=== PATIENT | female | born 1995 | race Caucasian/White ===

== ENCOUNTER 2018-04-04 03:39 | Outpatient (CLI) | payer MEDICAID ==
[~2018-04-04] VITALS: Ht 154.9 cm; Wt 45.8 kg
--- NOTE | 2018-04-04 03:50 | NUR ---
LANCE ZARATE presented to unit via ambulation from ED, accompanied by SO, with c/o HIGH RISK . LANCE ZARATE weighed, gowned, voided, and to bed. EFHM and TOCO applied, VS taken. LANCE ZARATE oriented to bed controls, call light, TV, heat, and A/C controls.
[2018-04-04 04:07] VITALS: BP 115/62
[2018-04-04 04:13] LABS: BILIRUBIN,URINE NEGATIVE (NEGATIVE); CLARITY,URINE VERY CLOUDY; COLOR,URINE YELLOW; GLUCOSE, URINE (UA) NEGATIVE (NEGATIVE); KETONES,URINE NEGATIVE (NEGATIVE); LEUKOCYTE ESTERASE ,URINE 2+ (NEGATIVE); NITRITE,URINE NEGATIVE (NEGATIVE); PH,URINE 8 (5-9); PROTEIN,URINE 1+ (NEGATIVE); UROBILINOGEN,URINE NORMAL (NORMAL)
--- NOTE | 2018-04-04 04:13 | NUR ---
Pt arrived on unit with c/o back pain, pt has a hx of a 9 week miscarriage in 2013, and 22 week demise 2016. Pt arrived and has no pain at this time. Pt is seeing a perinatologist in and is suppose to go to him if she experiences pain. Pt is unsure wher to go or how to get there so she came to our facility. VS monitored
[2018-04-04 04:21] LABS: BACTERIA,URINE FEW /HPF
[2018-04-04 04:22] LABS: AMORPHOUS SEDIMENT,UR LARGE AMOR PHOSPHATE /LPF
--- NOTE | 2018-04-04 05:52 | NUR ---
Pt resting with toco in place. No complaints at this time.
--- NOTE | 2018-04-04 07:00 | NUR ---
REPORT FROM GOLDIE JACKSON.
--- NOTE | 2018-04-04 07:25 | NUR ---
DR WANG HERE NEW ORDERS RECEIVED.
--- NOTE | 2018-04-04 08:10 | Diagnostic Imaging Report ---
Indication: Back pain 20 weeks , assess cervix. The cervix was nondilated and measured 3.1 cm in length. [place] viable IUP, had a heart rate 147 beats per minute. Placenta is anterior with no abruption or previa. The amniotic fluid volume appeared normal. Impression: Limited exam showed anterior placenta, no abruption or previa with nondilated 3.1 cm length cervix and cephalic positioning. Dictated by: Dictated on workstation # [id number]
--- NOTE | 2018-04-04 10:00 | NUR ---
NO CONTRACTIONS NOTED, PT DENIES CONTRACTIONS OR PAIN.
--- NOTE | 2018-04-04 10:05 | NUR ---
DR CHAPMAN CALLED NEW ORDERS RECEIVED.
--- NOTE | 2018-04-04 10:50 | NUR ---
DISCHARGE INSTRUCTIONS EXPLAINED, SIGNED, NO QUESTIONS NOTED, LABOR PRECAUTIONS EXPLAINED, PT VERBALIZES UNDERSTANDING OF FOLLOW UP CARE AND INSTRUCTIONS.
--- NOTE | 2018-04-04 10:55 | NUR ---
PT DISCHARGED TO HOME, TAKEN BY WC TO PRIVATE CAR WITH S/O AND STAFF AT SIDE, NO DISTRESS NOTED, WILL MONITOR.
== END 2018-04-04 10:55 | disposition home or self-care (01) ==
LOC: WSo 03:39 → LDRP 03:40 → WSo 10:55
PROVIDERS: ATTEND Family Medicine
DX: O60.02 Preterm labor without delivery, second trimester (principal); Z3A.20 20 weeks gestation of pregnancy
CPT/HCPCS: 76815; 81000; 87088; 99213

== ENCOUNTER → 2019-12-15 | Outpatient (CLI) | payer MEDICAID ==
[2019-12-15 14:26] LABS: BASOPHILS % (AUTO) 1 % (0-10); EOSINOPHILS % (AUTO) 1 % (0-10); HEMATOCRIT 38 % (35-52); HEMOGLOBIN 13.1 G/DL (11.5-16.0); LYMPHOCYTES % (AUTO) 31 % (12-44); MEAN CORPUSCULAR HEMOGLOBIN 32 PG (25-34); MEAN CORPUSCULAR HGB CONC 35 G/DL (32-36); MEAN CORPUSCULAR VOLUME 91 FL (80-99); MEAN PLATELET VOLUME 9.9 FL (7.4-10.4); MONOCYTES % (AUTO) 6 % (0-12); NEUTROPHILS % (AUTO) 62 % (42-75); PLATELET COUNT 242 10^3/uL (130-400); WHITE BLOOD COUNT 7.7 10^3/uL (4.3-11.0)
[2019-12-15 14:27] LABS: EOSINOPHILS # (AUTO) 0.1 10^3/uL (0.0-0.3); LYMPHOCYTES # (AUTO) 2.4 X 10^3 (1.0-4.0); MONOCYTES # (AUTO) 0.5 X 10^3 (0.0-1.0); NEUTROPHILS # (AUTO) 4.7 X 10^3 (1.8-7.8)
== END ==
LOC: LAB FS 13:52
PROVIDERS: ATTEND Family Medicine
DX: O09.90 Supervision of high risk pregnancy, unspecified, unspecified trimester (principal)
CPT/HCPCS: 36415; 80055; 86703; 86762; 87088

== ENCOUNTER → 2020-01-04 | Outpatient (CLI) | payer MEDICAID | LOC: LABNPT 11:46 | PROVIDERS: ATTEND Family Medicine | DX: O09.90 Supervision of high risk pregnancy, unspecified, unspecified trimester (principal) | CPT/HCPCS: 87491; 87591 ==

== ENCOUNTER 2020-02-12 21:48 | Emergency (ER) | payer MEDICAID ==
[~2020-02-12] VITALS: Ht 154.9 cm; Wt 46.7 kg
--- NOTE | 2020-02-12 22:09 | ED General ---
General Chief Complaint: Abdominal/GI Problems Stated Complaint: ABD PAIN,VOMITING Nursing Triage Note: Patient states that she started having medial lower abdominal pain earlier today. Patient states that it has progressively gotten worse during the day. Patient describes the pain as sharp and intermittent. Patient has vomited due to pain. Patient is 18 weeks . Nursing Sepsis Screen: No Definite Risk Source of Information: Patient History of Present Illness Date Seen by Provider: Feb 12, 2020 Time Seen by Provider: 21:51 Initial Comments 24 yo female presenting with complaints of abdominal pain and cramping from umbilicus down in the middle of her abdomen. She has had discomfort in her abdomen and felt that her baby was sitting on her bladder all day. She is G 4 P2SAB1 and about 18weeks 4 days with EDC 13 July 2020. She has had prior placental abruption and prior incompetent cervix. She follows with Dr. Chapman for local OB care but sees [facility] out of [facility] for specialty follow up since she has had 2 early deliveries. She had pain that caused her to have an episode of vomiting and cramping just prior to arrival in ED. She denies having nausea today but states she has Zofran she takes for nausea usually. She has not had any dysuria or issues with urination and no vaginal bleeding or discharge. She denies diarrhea or change in her bowels. She has had prior abdominal surgery with cholecystectomy and appendectomy. Allergies and Home Medications Allergies Coded Allergies: adhesive (Verified Allergy, Unknown, 04/04/18) latex (Verified Allergy, Unknown, 04/04/18) morphine (Verified Allergy, Unknown, 04/04/18) Uncoded Allergies: chocolate (Allergy, Unknown, 04/04/18) Home Medications No Active Prescriptions or Reported Meds Patient Home Medication List Home Medication List Reviewed: Yes Review of Systems Review of Systems Constitutional: No chills, No dizziness, No fever EENTM: no symptoms reported Respiratory: no symptoms reported Cardiovascular: no symptoms reported Gastrointestinal: see HPI Genitourinary: no symptoms reported : Yes Expected Date of Delivery: Jul 13, 2020 Musculoskeletal: no symptoms reported Skin: no symptoms reported Psychiatric/Neurological: No Symptoms Reported Hematologic/Lymphatic: No Symptoms Reported Past [id number]-[id number] Hx Past Med/Social Hx: Reviewed Nursing Past Med/Soc Hx Patient Social History Alcohol Use: Denies Use Recreational Drug Use: No Smoking Status: Current Everyday Smoker Type Used: Cigarettes Recent Foreign Travel: No Contact w/Someone Who Travel: No Recent Infectious Disease Expo: No Physical Abuse: No Sexual Abuse: No Mistreated: No Fear: No Past Medical History Surgeries: Yes (Eye Surgery) Appendectomy, Gallbladder Respiratory: No Cardiac: No Neurological: No Genitourinary: No Gastrointestinal: No Musculoskeletal: No Endocrine: No HEENT: No Cancer: No Psychosocial: No Integumentary: No Physical Exam Vital Signs Vital Signs - First Documented 02/12/20 21:51 Temp 36.5 Pulse 113 Resp 18 B/P (MAP) 122/52 (75) Pulse Ox 100 O2 Delivery Room Air Capillary Refill : Less Than 3 Seconds Height, Weight, BMI Height: 5'1.00" Weight: 101lbs. 0.0oz. 45.260513so; 19.00 BMI Method: General Appearance: WD/WN, Anxious, Moderate Distress HEENT: PERRL/EOMI, Pharynx Normal Neck: Full Range of Motion, Supple Respiratory: Chest Non Tender, Lungs Clear, Normal Breath Sounds, No Accessory Muscle Use, No Respiratory Distress Cardiovascular: Normal Peripheral Pulses, Tachycardia Gastrointestinal: Normal Bowel Sounds, No Pulsatile Mass, Soft, Guarding; No Rebound; Tenderness (tender to palpation of the lower abdomen), Other (gravid uterus) Neurologic/Psychiatric: Alert, Oriented x3, No Motor/Sensory Deficits Skin: Normal Color, Warm/Dry Progress/Results/Core Measures Suspected Sepsis Recent Fever Within 48 Hours: No Infection Criteria Present: None New/Unexplained Altered Menta: No Sepsis Screen: No Definite Risk SIRS Temperature: Pulse: 113 Respiratory Rate: 18 Laboratory Tests 02/12/20 22:10: White Blood Count 9.2 Blood Pressure 122 /52 Mean: 75 Laboratory Tests 02/12/20 22:10: Creatinine 0.52L, Platelet Count 230, Total Bilirubin 0.2 Results/Orders Lab Results Laboratory Tests Test 02/12/20 22:10 02/12/20 22:46 Range/Units White Blood Count 9.2 4.3-11.0 10^3/uL Red Blood Count 3.92 L 4.35-5.85 10^6/uL Hemoglobin 12.8 11.5-16.0 G/DL Hematocrit 37 35-52 % Mean Corpuscular Volume 94 80-99 FL Mean Corpuscular Hemoglobin 33 25-34 PG Mean Corpuscular Hemoglobin Concent 35 32-36 G/DL Red Cell Distribution Width 12.6 10.0-14.5 % Platelet Count 230 130-400 10^3/uL Mean Platelet Volume 10.1 7.4-10.4 FL Immature Granulocyte % (Auto) 1 % Neutrophils (%) (Auto) 64 42-75 % Lymphocytes (%) (Auto) 30 12-44 % Monocytes (%) (Auto) 6 0-12 % Eosinophils (%) (Auto) 0 0-10 % Basophils (%) (Auto) 0 0-10 % Neutrophils # (Auto) 5.8 1.8-7.8 X 10^3 Lymphocytes # (Auto) 2.7 1.0-4.0 X 10^3 Monocytes # (Auto) 0.5 0.0-1.0 X 10^3 Eosinophils # (Auto) 0.0 0.0-0.3 10^3/uL Basophils # (Auto) 0.0 0.0-0.1 10^3/uL Immature Granulocyte # (Auto) 0.1 0.0-0.1 10^3/uL Sodium Level 135 135-145 MMOL/L Potassium Level 3.3 L 3.6-5.0 MMOL/L Chloride Level 104 98-107 MMOL/L Carbon Dioxide Level 20 L 21-32 MMOL/L Anion Gap 11 5-14 MMOL/L Blood Urea Nitrogen 8 7-18 MG/DL Creatinine 0.52 L 0.60-1.30 MG/DL Estimat Glomerular Filtration Rate > 60 BUN/Creatinine Ratio 15 Glucose Level 74 70-105 MG/DL Calcium Level 8.4 L 8.5-10.1 MG/DL Corrected Calcium 8.5 8.5-10.1 MG/DL Total Bilirubin 0.2 0.1-1.0 MG/DL Aspartate Amino Transf (AST/SGOT) 12 5-34 U/L Alanine Aminotransferase (ALT/SGPT) 10 0-55 U/L Alkaline Phosphatase 47 40-136 U/L Total Protein 6.2 L 6.4-8.2 GM/DL Albumin 3.9 3.2-4.5 GM/DL Lipase 16 8-78 U/L Urine Color DARK YELLOW Urine Clarity SL CLOUDY Urine pH 7.5 5-9 Urine Specific [place] 1.025 H 1.016-1.022 Urine Protein NEGATIVE NEGATIVE Urine Glucose (UA) NEGATIVE NEGATIVE Urine Ketones 1+ H NEGATIVE Urine Nitrite NEGATIVE NEGATIVE Urine Bilirubin NEGATIVE NEGATIVE Urine Urobilinogen 0.2 < = 1.0 MG/DL Urine Leukocyte Esterase TRACE H NEGATIVE Urine RBC (Auto) NEGATIVE NEGATIVE Urine RBC NONE /HPF Urine WBC 2-5 /HPF Urine Squamous Epithelial Cells 2-5 /HPF Urine Crystals PRESENT H /LPF Urine Amorphous Sediment MOD JEFFERY PHOSPHATE H /LPF Urine Bacteria FEW H /HPF Urine Casts NONE /LPF Urine Mucus MODERATE H /LPF Urine Culture Indicated NO My Orders Orders - MONIQUE FARLEY MD Heart Tones (02/12/20 22:07) Comprehensive Metabolic Panel (02/12/20 22:07) Lipase (02/12/20 22:07) Ua Culture If Indicated (02/12/20 22:07) Ed Iv/Invasive Line Start (02/12/20 22:07) Cbc With Automated Diff (02/12/20 22:07) Ns Iv 1000 Ml (Sodium Chloride 0.9%) (02/12/20 22:15) Acetaminophen Tablet (Tylenol Tablet) (02/12/20 23:00) Vital Signs/I&O 02/12/20 21:51 Temp 36.5 Pulse 113 Resp 18 B/P (MAP) 122/52 (75) Pulse Ox 100 O2 Delivery Room Air Capillary Refill : Less Than 3 Seconds Blood Pressure Mean: 75 Progress Note #1: Progress Note check labs and lipase with UA and heart tones. Will try giving IVF for hydration and see if that helps her pain and symptoms. FHTs in 140s Progress Note #2: Progress Note Labs are not showing acute abnormality on CBC. Chemistry with mild drop in potassium but no acute significant abnormality. UA shows elevated specific gravity and ketones with signs of dehydration but no signs of definite infection and no indication for culture. Pt feeling better after IVF and she does report at her visit last week in OP they told her she was having some mild uterine contractions and told her to drink more fluids. Will have her push fluids and electrolyte drinks. Counseled on follow up and return precautions. Departure Impression Primary Impression: Uterine irritability Additional Impressions: Abdominal pain during in second trimester Dehydration during Disposition: 01 HOME, SELF-CARE Condition: Improved Departure-Patient Inst. Decision time for Depature: 23:09 Referrals: ADRIEL CHAPMAN MD (PCP/Family) Primary Care Physician Patient Instructions: Stomach Pain in Early , Dehydration, Adult (DC) Add. Discharge Instructions: Stay well hydrated and try alternating electrolyte drinks with water. Follow up with your perinatologist and obstetritian for continued concerns All discharge instructions reviewed with patient and/or family. Voiced understanding. Scripts No Active Prescriptions or Reported Meds Images Torso/Trunk 1 - Moderate, Tenderness (tender to palpation from umbilicus down on abdomen. guarding but no rebound) MONIQUE FARLEY MD Feb 12, 2020 22:09
[2020-02-12] MEDS ORDERED: NS IV 1000 ML 1,000 ML IV SCH (22:15)
[2020-02-12 22:19] LABS: HEMOGLOBIN 12.8 G/DL (11.5-16.0); MEAN CORPUSCULAR HEMOGLOBIN 33 PG (25-34); WHITE BLOOD COUNT 9.2 10^3/uL (4.3-11.0)
[2020-02-12 22:20] LABS: BASOPHILS % (AUTO) 0 % (0-10); EOSINOPHILS % (AUTO) 0 % (0-10); HEMATOCRIT 37 % (35-52); LYMPHOCYTES # (AUTO) 2.7 X 10^3 (1.0-4.0); LYMPHOCYTES % (AUTO) 30 % (12-44); MEAN CORPUSCULAR HGB CONC 35 G/DL (32-36); MEAN CORPUSCULAR VOLUME 94 FL (80-99); MEAN PLATELET VOLUME 10.1 FL (7.4-10.4); MONOCYTES # (AUTO) 0.5 X 10^3 (0.0-1.0); MONOCYTES % (AUTO) 6 % (0-12); NEUTROPHILS # (AUTO) 5.8 X 10^3 (1.8-7.8); NEUTROPHILS % (AUTO) 64 % (42-75); PLATELET COUNT 230 10^3/uL (130-400)
[2020-02-12 22:38] LABS: CARBON DIOXIDE 20 MMOL/L (21-32); CHLORIDE 104 MMOL/L (98-107); POTASSIUM 3.3 MMOL/L (3.6-5.0); SODIUM 135 MMOL/L (135-145)
[2020-02-12 22:39] LABS: ALANINE AMINOTRANSFERASE 10 U/L (0-55); ALBUMIN 3.9 GM/DL (3.2-4.5); ALKALINE PHOSPHATASE 47 U/L (40-136); BILIRUBIN,TOTAL 0.2 MG/DL (0.1-1.0); BUN/CREATININE RATIO 15; CALCIUM 8.4 MG/DL (8.5-10.1); CREATININE SERUM 0.52 MG/DL (0.60-1.30); GFR ESTIMATED > 60; GLUCOSE 74 MG/DL (70-105); LIPASE 16 U/L (8-78); TOTAL PROTEIN 6.2 GM/DL (6.4-8.2)
[2020-02-12 22:58] LABS: BILIRUBIN,URINE NEGATIVE (NEGATIVE); CLARITY,URINE SL CLOUDY; COLOR,URINE DARK YELLOW; GLUCOSE, URINE (UA) NEGATIVE (NEGATIVE); KETONES,URINE 1+ (NEGATIVE); NITRITE,URINE NEGATIVE (NEGATIVE); PH,URINE 7.5 (5-9); PROTEIN,URINE NEGATIVE (NEGATIVE)
[2020-02-12 22:59] LABS: AMORPHOUS SEDIMENT,UR MOD AMOR PHOSPHATE /LPF; BACTERIA,URINE FEW /HPF; LEUKOCYTE ESTERASE ,URINE TRACE (NEGATIVE)
[2020-02-12] MEDS ORDERED: ACETAMINOPHEN 500 MG TAB (TYLENOL) PO STA (23:00)
[2020-02-12 23:15] VITALS: BP 101/61
== END 2020-02-12 23:15 | disposition home or self-care (01) ==
LOC: EDUNIT# 21:48 → ER FS 21:50
DX: O26.892 Other specified pregnancy related conditions, second trimester (principal); R10.9 Unspecified abdominal pain; E86.0 Dehydration; N36.8 Other specified disorders of urethra; F41.9 Anxiety disorder, unspecified; F17.210 Nicotine dependence, cigarettes, uncomplicated; Z88.5 Allergy status to narcotic agent; Z91.040 Latex allergy status; Z3A.18 18 weeks gestation of pregnancy
CPT/HCPCS: 36415; 80053; 81000; 83690; 85025

== ENCOUNTER → 2020-02-12 | Outpatient (CLI) | payer MEDICAID | LOC: LAB FS 16:16 | PROVIDERS: ATTEND Family Medicine | DX: O09.212 Supervision of pregnancy with history of pre-term labor, second trimester (principal) | CPT/HCPCS: 36415; 82105; 84702; 86336 ==

== ENCOUNTER 2020-06-06 17:23 | Emergency (ER) | payer MEDICAID ==
[2020-06-06] MEDS ORDERED: NS IV 1000 ML 1,000 ML IV STA ×2 (17:47→19:08)
[2020-06-06] MEDS ORDERED: ONDANSETRON 4 MG/2 ML (SDV) Z0FRAN IVP STA (17:57)
[2020-06-06 18:19] LABS: WHITE BLOOD COUNT 18.1 10^3/uL (4.3-11.0)
[2020-06-06 18:20] LABS: BASOPHILS # (AUTO) 0.1 10^3/uL (0.0-0.1); BASOPHILS % (AUTO) 0 % (0-10); EOSINOPHILS % (AUTO) 0 % (0-10); HEMATOCRIT 33 % (35-52); HEMOGLOBIN 11.2 G/DL (11.5-16.0); LYMPHOCYTES # (AUTO) 1.4 X 10^3 (1.0-4.0); LYMPHOCYTES % (AUTO) 8 % (12-44); MEAN CORPUSCULAR HEMOGLOBIN 32 PG (25-34); MEAN CORPUSCULAR HGB CONC 34 G/DL (32-36); MEAN CORPUSCULAR VOLUME 94 FL (80-99); MEAN PLATELET VOLUME 10.7 FL (7.4-10.4); MONOCYTES # (AUTO) 0.9 X 10^3 (0.0-1.0); MONOCYTES % (AUTO) 5 % (0-12); NEUTROPHILS # (AUTO) 15.5 X 10^3 (1.8-7.8); NEUTROPHILS % (AUTO) 86 % (42-75); PLATELET COUNT 316 10^3/uL (130-400)
--- NOTE | 2020-06-06 18:29 | ED General ---
General Chief Complaint: Abdominal/GI Problems Stated Complaint: VOMITING Source of Information: Patient History of Present Illness Date Seen by Provider: Jun 06, 2020 Time Seen by Provider: 17:26 Initial Comments 25-year-old female that is approximately 34 weeks estimated gestational age presents with diffuse abdominal cramping and nausea and vomiting all day. She has issues with her liver and is taking medicine for that. She has Zofran but only has pills not the dissolving tablets. She had been doing well but then today has been vomiting all day. She denies feeling dizzy or lightheaded. She has no vaginal bleeding or discharge. She states the last time she peed was around 8 AM. She had checked with her OB doctor out of [place] and they advised her to come get fluids and be evaluated. If there were further concerns then check with the OB doctor. She denies any fever or chills. She had no burning or pain when she urinated this morning. Allergies and Home Medications Allergies Coded Allergies: adhesive (Verified Allergy, Unknown, 04/04/18) latex (Verified Allergy, Unknown, 04/04/18) morphine (Verified Allergy, Unknown, 04/04/18) Uncoded Allergies: chocolate (Allergy, Unknown, 04/04/18) Home Medications Ondansetron 4 Mg Tab.rapdis, 4 MG PO Q6H PRN for NAUSEA/VOMITING Prescribed by: MONIQUE FARLEY on 06/06/201946 Patient Home Medication List Home Medication List Reviewed: Yes Review of Systems Review of Systems Constitutional: No chills, No diaphoresis, No dizziness, No fever EENTM: no symptoms reported Respiratory: no symptoms reported Cardiovascular: no symptoms reported Gastrointestinal: see HPI Genitourinary: see HPI, decreased output Musculoskeletal: no symptoms reported Skin: no symptoms reported Psychiatric/Neurological: No Symptoms Reported Past Wrzirmj-Bjcbqn-Syhsfr Hx Past Med/Social Hx: Reviewed Nursing Past Med/Soc Hx Patient Social History Alcohol Use: Denies Use Smoking Status: Current Everyday Smoker Type Used: Cigarettes 2nd Hand Smoke Exposure: No Past Medical History Surgeries: Yes (Eye Surgery) Appendectomy, Gallbladder, Orthopedic Respiratory: No Cardiac: No Neurological: No Genitourinary: No Gastrointestinal: Yes (intrahepatic cholestasis of ) Musculoskeletal: No Endocrine: No HEENT: No Cancer: No Psychosocial: No Integumentary: No Physical Exam Vital Signs Vital Signs - First Documented 06/06/20 18:00 Temp 37.0 Pulse 102 Resp 18 B/P (MAP) 115/58 (77) Pulse Ox 100 Capillary Refill : Height, Weight, BMI Height: 5'1.00" Weight: 101lbs. 0.0oz. 45.219509ca; 19.00 BMI Method: General Appearance: No Apparent Distress, Thin HEENT: Pharynx Normal Neck: Non Tender, Supple Respiratory: Chest Non Tender, Lungs Clear, Normal Breath Sounds, No Accessory Muscle Use, No Respiratory Distress Cardiovascular: Regular Rate, Rhythm Gastrointestinal: Normal Bowel Sounds, No Pulsatile Mass, Soft, Other (Gravid uterus. Diffuse mild abdominal cramping with palpation. heart tones in the 120s.) Rectal: Deferred Extremity: Normal Capillary Refill, No Pedal Edema Neurologic/Psychiatric: Alert, Oriented x3, millinery copyist II-XII Norm as Tested Skin: Normal Color, Warm/Dry Progress/Results/Core Measures Suspected Sepsis SIRS Temperature: Pulse: Respiratory Rate: Laboratory Tests 06/06/20 18:12: White Blood Count 18.1H Blood Pressure / Mean: Laboratory Tests 06/06/20 18:12: Creatinine 0.56L, Platelet Count 316, Total Bilirubin 0.5 Results/Orders Lab Results Laboratory Tests Test 06/06/20 18:12 06/06/20 19:24 Range/Units White Blood Count 18.1 H 4.3-11.0 10^3/uL Red Blood Count 3.54 L 4.35-5.85 10^6/uL Hemoglobin 11.2 L 11.5-16.0 G/DL Hematocrit 33 L 35-52 % Mean Corpuscular Volume 94 80-99 FL Mean Corpuscular Hemoglobin 32 25-34 PG Mean Corpuscular Hemoglobin Concent 34 32-36 G/DL Red Cell Distribution Width 12.5 10.0-14.5 % Platelet Count 316 130-400 10^3/uL Mean Platelet Volume 10.7 H 7.4-10.4 FL Immature Granulocyte % (Auto) 1 % Neutrophils (%) (Auto) 86 H 42-75 % Lymphocytes (%) (Auto) 8 L 12-44 % Monocytes (%) (Auto) 5 0-12 % Eosinophils (%) (Auto) 0 0-10 % Basophils (%) (Auto) 0 0-10 % Neutrophils # (Auto) 15.5 H 1.8-7.8 X 10^3 Lymphocytes # (Auto) 1.4 1.0-4.0 X 10^3 Monocytes # (Auto) 0.9 0.0-1.0 X 10^3 Eosinophils # (Auto) 0.0 0.0-0.3 10^3/uL Basophils # (Auto) 0.1 0.0-0.1 10^3/uL Immature Granulocyte # (Auto) 0.2 H 0.0-0.1 10^3/uL Neutrophils % (Manual) 80 % Lymphocytes % (Manual) 7 % Monocytes % (Manual) 5 % Eosinophils % (Manual) % Basophils % (Manual) % Band Neutrophils 8 % Blood Morphology Comment NORMAL Sodium Level 136 135-145 MMOL/L Potassium Level 3.6 3.6-5.0 MMOL/L Chloride Level 103 98-107 MMOL/L Carbon Dioxide Level 20 L 21-32 MMOL/L Anion Gap 13 5-14 MMOL/L Blood Urea Nitrogen 9 7-18 MG/DL Creatinine 0.56 L 0.60-1.30 MG/DL Estimat Glomerular Filtration Rate > 60 BUN/Creatinine Ratio 16 Glucose Level 71 70-105 MG/DL Calcium Level 8.3 L 8.5-10.1 MG/DL Corrected Calcium 8.5 8.5-10.1 MG/DL Total Bilirubin 0.5 0.1-1.0 MG/DL Aspartate Amino Transf (AST/SGOT) 14 5-34 U/L Alanine Aminotransferase (ALT/SGPT) 5 0-55 U/L Alkaline Phosphatase 106 40-136 U/L Total Protein 6.4 6.4-8.2 GM/DL Albumin 3.7 3.2-4.5 GM/DL Lipase 11 8-78 U/L Urine Color HERMINIO H Urine Clarity SL CLOUDY Urine pH 6.0 5-9 Urine Specific [place] >=1.030 1.016-1.022 Urine Protein TRACE H NEGATIVE Urine Glucose (UA) NEGATIVE NEGATIVE Urine Ketones 3+ H NEGATIVE Urine Nitrite NEGATIVE NEGATIVE Urine Bilirubin 2+ H NEGATIVE Urine Urobilinogen 2.0 < = 1.0 MG/DL Urine Leukocyte Esterase TRACE H NEGATIVE Urine RBC (Auto) NEGATIVE NEGATIVE Urine RBC NONE /HPF Urine WBC 10-25 H /HPF Urine Squamous Epithelial Cells >50 H /HPF Urine Crystals NONE /LPF Urine Bacteria FEW H /HPF Urine Casts NONE /LPF Urine Mucus LARGE H /LPF Urine Culture Indicated YES My Orders Orders - MONIQUE FARLEY MD Comprehensive Metabolic Panel (06/06/20 17:47) Lipase (06/06/20 17:47) Ua Culture If Indicated (06/06/20 17:47) Ed Iv/Invasive Line Start (06/06/20 17:47) Cbc With Automated Diff (06/06/20 17:47) Ns Iv 1000 Ml (Sodium Chloride 0.9%) (06/06/20 17:47) Heart Tones (06/06/20 17:47) Ondansetron Injection (Zofran Injectio (06/06/20 17:57) Manual Differential (06/06/20 18:12) Ns Iv 1000 Ml (Sodium Chloride 0.9%) (06/06/20 19:08) Rx-Ondansetron Po (Rx-Zofran Po) (06/06/20 19:15) Urine Culture (06/06/20 19:24) Vital Signs/I&O 06/06/20 18:00 Temp 37.0 Pulse 102 Resp 18 B/P (MAP) 115/58 (77) Pulse Ox 100 Capillary Refill : Progress Note #1: Progress Note Obtain heart tones, IV access for fluids and nausea medication. If she can tolerate oral medicines and fluids we will plan on discharging home so she can follow-up with her OB doctor. Differential diagnosis includes hyperemesis gravidarum, gastroenteritis, uterine irritability, dehydration, UTI Progress Note #2: Progress Note CBC does show an elevated white blood cell count of 18.1 thousand. Her chemistry does not show any acute significant abnormality. Her symptoms are improved with treatment here in the ED with IV Zofran and IV fluids. She states the abdominal cramping has resolved with hydration. She is tolerating oral fluids here in the ED. The white count is likely due to stress as well as the nausea and vomiting and dehydration. As she is not running a fever or having other signs of infection this can also be due to her to some degree. As patient is tolerating oral fluids she did not want to have a second bag of IV fluids administered prior to discharge. Her urinalysis was concentrated with an elevated specific gravity and ketones. She had greater than 50 squamous epithe lial cells. This is likely a contaminated specimen with skin cells in it. A culture will be done since she did have some white blood cells and bacteria. As the patient was tolerating oral intake and had access to 4 pack of Zofran ODT as well as a prescription was sent to the [facility] for dissolving tablets of Zofran she stated that she would go home push fluids and take her regular medications. She then will follow up with the OB doctor for continued concerns. Departure Impression Primary Impression: Nausea and vomiting during Additional Impressions: Uterine irritability Dehydration during Disposition: HOME, SELF-CARE Condition: Improved Departure-Patient Inst. Decision time for Depature: 19:45 Referrals: ADRIEL CHAPMAN MD (PCP) Primary Care Physician SUE FOX MD (Family) Primary Care Physician Patient Instructions: Dehydration, Adult ED, Nausea and Vomiting, Adult ED, Nausea and Vomiting of Add. Discharge Instructions: Use the dissolving Ondansetron (Zofran) to help keep your stomach settled Follow up with your OB doctor in [place] for continued concerns Continue to push fluids and hydration All discharge instructions reviewed with patient and/or family. Voiced understanding. Scripts Ondansetron (Ondansetron Odt) 4 Mg Tab.rapdis 4 MG PO Q6H PRN for NAUSEA/VOMITING for 5 Days, #20 TAB 0 Refills Prov: MONIQUE FARLEY MD 06/06/20 MONIQUE FARLEY MD Jun 06, 2020 18:29
[2020-06-06 18:31] LABS: BAND NEUTROPHILS 8 %; LYMPHOCYTES % (MANUAL) 7 %; MONOCYTES % (MANUAL) 5 %; NEUTROPHILS % (MANUAL) 80 %; RBC MORPH NORMAL
[2020-06-06 18:48] LABS: ALKALINE PHOSPHATASE 106 U/L (40-136); BILIRUBIN,TOTAL 0.5 MG/DL (0.1-1.0); BUN/CREATININE RATIO 16; CALCIUM 8.3 MG/DL (8.5-10.1); CARBON DIOXIDE 20 MMOL/L (21-32); CHLORIDE 103 MMOL/L (98-107); CREATININE SERUM 0.56 MG/DL (0.60-1.30); GFR ESTIMATED > 60; GLUCOSE 71 MG/DL (70-105); POTASSIUM 3.6 MMOL/L (3.6-5.0); SODIUM 136 MMOL/L (135-145)
[2020-06-06 18:49] LABS: ALANINE AMINOTRANSFERASE 5 U/L (0-55); ALBUMIN 3.7 GM/DL (3.2-4.5); LIPASE 11 U/L (8-78); TOTAL PROTEIN 6.4 GM/DL (6.4-8.2)
[2020-06-06] MEDS ORDERED: RX-ONDANSETRON 4 MG ODT (ZOFRAN) PPK #4 PO PRN (19:15)
[2020-06-06] MEDS ORDERED: ONDA4TAB11 PO (19:47)
[2020-06-06 19:53] VITALS: BP 112/58
[2020-06-06 20:10] LABS: COLOR,URINE AMBER
[2020-06-06 20:11] LABS: BACTERIA,URINE FEW /HPF; BILIRUBIN,URINE 2+ (NEGATIVE); CLARITY,URINE SL CLOUDY; GLUCOSE, URINE (UA) NEGATIVE (NEGATIVE); KETONES,URINE 3+ (NEGATIVE); LEUKOCYTE ESTERASE ,URINE TRACE (NEGATIVE); NITRITE,URINE NEGATIVE (NEGATIVE); PROTEIN,URINE TRACE (NEGATIVE); SQUAMOUS EPITHELIAL CELL,UR >50 /HPF
== END 2020-06-06 19:53 | disposition home or self-care (01) ==
LOC: EDUNIT# 17:23 → ER FS 17:25
DX: O21.0 Mild hyperemesis gravidarum (principal); O62.2 Other uterine inertia; O21.1 Hyperemesis gravidarum with metabolic disturbance; F17.210 Nicotine dependence, cigarettes, uncomplicated; Z3A.34 34 weeks gestation of pregnancy; Z91.040 Latex allergy status; Z88.5 Allergy status to narcotic agent
CPT/HCPCS: 36415; 80053; 81000; 83690; 85007; 85027; 87088